=== PATIENT | female | born 1970 | race Hispanic/Latino ===

== ENCOUNTER 2017-11-30 18:47 | Emergency (ER) | payer OTHER ==
[2017-11-30 18:51] VITALS: BP 133/86; PULSE 92; RESP 18; TEMP 98.2; O2SAT 99
[2017-11-30] MEDS ORDERED: Absorbable Gelatin Sponge Size 12-7 TP STA (19:04)
[2017-11-30] MEDS ORDERED: Tdap Vaccine 0.5 ml Vial (10-64 yrs) IM ONE ×2 (19:04→19:11)
[2017-11-30] MEDS ORDERED: Absorbable Gelatin Sponge Size 12-7 ONE (19:11)
--- NOTE | 2017-11-30 19:13 | ED PDOC ---
Upper Extremity Pain/Injury Time Seen by Provider: 11/30/17 18:53 Chief Complaint (Nursing): Finger,Hand,&Wrist Chief Complaint (Provider): Left Thumb Laceration History Per: Patient Additional History Per: EMS Additional Complaint(s): 47 year old right handed female presents to the ED via EMS for evaluation of laceration to her left thumb. Patient states that prior to arrival, she was cutting vegetables with a knife when it slipped and hit the tip of the thumb. patient was unable to stop the bleeding so she called ambulance to come here. Patient is unsure of last tetanus booster. PMD: Dr. Elias, in [place] Past Medical History Reviewed: Historical Data, Nursing Documentation, Vital Signs Vital Signs: Last Vital Signs Temp 98.2 F 11/30/17 18:49 Pulse 92 H 11/30/17 18:49 Resp 18 11/30/17 18:49 BP 133/86 11/30/17 18:49 Pulse Ox 99 11/30/17 18:49 - Medical History PMH: Anxiety, HTN, Seizures - Surgical History Surgical History: No Surg Hx - Family History Family History: States: No Known Family Hx - Living Arrangements Living Arrangements: With Family - Social History Current smoker - smoking cessation education provided: No Alcohol: None Drugs: Denies - Immunization History Hx Tetanus Toxoid Vaccination: No - Allergies Allergies/Adverse Reactions: Allergies Allergy/AdvReac Type Severity Reaction Status Date / Time phenytoin [From Dilantin] Allergy ANAPHYLAXIS Verified 11/30/17 18:52 Review of Systems ROS Statement: Except As Marked, All Systems Reviewed And Found Negative Skin: Positive for: Other (laceration to left thumb) Physical Exam - Reviewed Nursing Documentation Reviewed: Yes Vital Signs Reviewed: Yes - Physical Exam Appears: Positive for: Well, Non-toxic, No Acute Distress Head Exam: Positive for: NORMOCEPHALIC Skin: Positive for: Normal Color. Negative for: Rash Eye Exam: Positive for: Normal appearance Extremity: Positive for: Normal ROM (of left hand and all digits), Other (1 cm avulsion laceration to distal aspect of left thumb with minimal active bleeding. fingernail intact. sensation intact.) Neurologic/Psych: Positive for: Alert, Oriented (x3). Negative for: Motor/ Sensory Deficits - ECG O2 Sat by Pulse Oximetry: 99 (RA) Pulse Ox Interpretation: Normal Medical Decision Making Medical Decision Making: Time: 1904 Initial Impression: 47 year old female with finger laceration Initial Plan: --Tetanus booster --Gelatin sponge dressing gel foam dressing applied to affected digit. Patient given wound care instructions. Scribe Attestation: Documented by Dari Grijalva, acting as a scribe for Vanna Durham PA-C Provider Scribe Attestation: All medical record entries made by the Scribe were at my direction and personally dictated by me. I have reviewed the chart and agree that the record accurately reflects my personal performance of the history, physical exam, medical decision making, and the department course for this patient. I have also personally directed, reviewed, and agree with the discharge instructions and disposition. Disposition - Clinical Impression Clinical Impression: Skin avulsion, Requires a booster tetanus - Patient ED Disposition Is Patient to be Admitted: No Counseled Patient/Family Regarding: Diagnosis, Need For Followup - Disposition Referrals: [facility] [Outside] Disposition: Routine/Home Disposition Time: 19:27 Condition: STABLE Additional Instructions: Keep bandage in place for one to 2 days. After this amount of time remove bandage and foam and wound to continue to heal from there. Advil or Tylenol for pain as needed. Follow-up with primary doctor in 2-3 days. Instructions: Diphtheria and Tetanus Toxoids, and Acellular Pertussis Vaccine, Wound Care (DC), Skin Abrasions (DC) Forms: [employer] (Frisian)
== END 2017-11-30 20:12 | disposition home or self-care (01) ==
LOC: H.ER 18:47
DX: S61.002A Unspecified open wound of left thumb without damage to nail, initial encounter (principal); W26.0XXA Contact with knife, initial encounter; Y92.000 Kitchen of unspecified non-institutional (private) residence as the place of occurrence of the external cause; I10 Essential (primary) hypertension